=== PATIENT | male | born 1970 | race Hispanic/Latino ===

== ENCOUNTER 2016-07-30 09:02 | Observation (INO) | payer BC ==
[2016-07-30 09:11] VITALS: BMI 24.7
[2016-07-30] MEDS ORDERED: Iohexol 240 (50 ml) PO ONE (10:00)
[2016-07-30] MEDS ORDERED: Iohexol 240 (50 ml) ONE (10:05)
--- NOTE | 2016-07-30 10:07 | ED PDOC ---
HPI: Abdomen Time Seen by Provider: 07/30/16 09:38 Chief Complaint (Nursing): Abdominal Pain History Per: Patient Additional Complaint(s): Patient is a 46 year old male who is c/o abd pain for 6 months. Pt states that for the past 6 months he has been having pressure-like upper abd pain and sometimes LLQ pain. The pain will radiate to his left and right sides. He has also been with constipation for past few months. He states that it feels like something is inside of his abd. Pt with white stool today and dark urine. Pt is not losing weight. (+) Nausea. Pt also c/o feeling weak and lethargic. Pt also c/o poor appetite. No heart burn type of sensation. no fever. No additional complaints at this time. PMD: None Past Medical History Reviewed: Historical Data, Nursing Documentation, Vital Signs Vital Signs: Last Vital Signs Temp 97 F L 07/30/16 09:10 Pulse 56 L 07/30/16 09:10 Resp BP 131/77 07/30/16 09:10 Pulse Ox 99 07/30/16 15:08 - Medical History PMH: No Chronic Diseases Denies: Chronic Kidney Disease - Family History Family History: States: CAD - Social History Current smoker - smoking cessation education provided: No Ex-Smoker (has not smoked in the last 12 months): No Alcohol: None Drugs: Denies - Allergies Allergies/Adverse Reactions: Allergies Allergy/AdvReac Type Severity Reaction Status Date / Time No Known Allergies Allergy Verified 07/30/16 09:33 Review of Systems ROS Statement: Except As Marked, All Systems Reviewed And Found Negative Constitutional: Negative for: Fever Cardiovascular: Negative for: Chest Pain Respiratory: Negative for: Shortness of Breath Gastrointestinal: Positive for: Nausea, Abdominal Pain. Negative for: Vomiting Genitourinary Male: Negative for: Dysuria Physical Exam - Reviewed Nursing Documentation Reviewed: Yes Vital Signs Reviewed: Yes - Physical Exam Appears: Positive for: Well, Non-toxic Head Exam: Positive for: ATRAUMATIC, NORMAL INSPECTION, NORMOCEPHALIC Skin: Positive for: Warm, Dry Eye Exam: Positive for: Normal appearance, EOMI ENT: Positive for: Normal ENT Inspection Neck: Positive for: Normal Cardiovascular/Chest: Positive for: Regular Rate, Rhythm, Chest Non Tender Respiratory: Positive for: Normal Breath Sounds. Negative for: Rales, Rhonchi, Wheezing Gastrointestinal/Abdominal: Positive for: Bowel Sounds, Soft, Tenderness (mild mid upper gastric tenderness and some LLQ). Negative for: Guarding, Rebound Back: Positive for: Normal Inspection Extremity: Positive for: Normal ROM Lymphatic: Positive for: Deferred Neurologic/Psych: Positive for: Alert. Negative for: Motor/Sensory Deficits - Laboratory Results Result Diagrams: 07/30/16 10:26 07/30/16 10:26 - ECG O2 Sat by Pulse Oximetry: 99 Medical Decision Making Medical Decision Making: Intial Impression: Undifferentiated abdominal pain Initial Plan: Will check labs and get CT ED OBSERVATION Date of observation admission: 07/30/16 Time of observation admission: 12:06 - Observation admission statement Patient is being placed in observation because:: Still symptomatic - Goals of Observation Goals of observation are:: Improvement of symptoms - Progress Note Progress Note: 07/30/16 13:15 Pt has returned from CT scan. Awaiting CT reading 07/30/16 14:18 There is a partially visualized 2 cm right middle lobe mass that is seen on the abd CT. Radiology recommends a CT of the chest. I've ordered a CT of the chest. 07/30/16 15:07 My shift has come to an end. I have endorsed the patient to the incoming ED attending Dr. Terrie Reyes. She will follow up the CT of the chest and dispo patient accordingly. Disposition - Clinical Impression Clinical Impression: Abdominal pain - Disposition Disposition: Transfer of Care Disposition Time: 15:00 Condition: FAIR Patient Signed Over To: Terrie Reyes Handoff Comments: F/U CT and dispo accordingly - POA Present On Arrival: None
[2016-07-30] MEDS ORDERED: Sodium Chloride 0.9% 1,000 ML IV SCH (10:15)
[2016-07-30 11:34] LABS: BASO % 0.6 % (0.0-2.0); EOS # 0.1 K/uL (0.0-0.7); EOS % 2.4 % (0.0-4.0); HEMATOCRIT 42.5 % (35.0-51.0); LYMPH # 1.9 K/uL (1.0-4.3); LYMPH % 34.3 % (20.0-40.0); MEAN CELL VOLUME 88.6 fl (80.0-94.0); MEAN CORPUSCULAR HEMOGLOBIN 28.9 pg (27.0-31.0); MEAN CORPUSCULAR HGB CONC 32.6 g/dL (33.0-37.0); MEAN PLATELET VOLUME 8.3 fl (7.2-11.7); MONO # 0.4 K/uL (0.0-0.8); MONO % 7.6 % (0.0-10.0); NEUT # 3.1 K/uL (1.8-7.0); NEUT % 55.1 % (50.0-75.0); NRBC % 0.1 % (0.0-0.0); RED CELL DISTRIBUTION WIDTH 13.6 % (11.5-14.5); WHITE BLOOD COUNT 5.6 K/uL (4.8-10.8)
[2016-07-30 11:42] LABS: ALB/GLOB RATIO 1.5 (1.0-2.1); ALKALINE PHOSPHATASE 69 U/L (38-126); ALT/SGPT 39 U/L (21-72); AMYLASE 90 U/L (30-110); AST/SGOT 35 U/L (17-59); BILIRUBIN,TOTAL 0.2 mg/dl (0.2-1.3); BLOOD UREA NITROGEN 14 mg/dl (9-20); CALCIUM 9.1 mg/dL (8.4-10.2); CARBON DIOXIDE 26 mmol/L (22-30); CHLORIDE 104 mmol/L (98-107); GFR AFRICAN-AMERICAN > 60; GLUCOSE,RANDOM 98 mg/dL (75-110); LIPASE 241 U/L (23-300); POTASSIUM 4.4 MMOL/L (3.6-5.0); SODIUM 139 mmol/l (132-148); TOTAL PROTEIN 7.5 G/DL (6.3-8.2)
[2016-07-30 12:24] LABS: RBC URINE 1 /hpf (0-3); URINE BILIRUBIN NEGATIVE (NEGATIVE); URINE BLOOD NEGATIVE (NEGATIVE); URINE COLOR YELLOW (YELLOW); URINE GLUCOSE (UA) NEG (Normal); URINE KETONE TRACE mg/dL (NEGATIVE); URINE LEUKOCYTE ESTERASE NEG Leu/uL (Negative); URINE PROTEIN NEGATIVE (NEGATIVE); URINE UROBILINOGEN 0.2-1.0 mg/dL (0.2-1.0); WBC URINE < 1 /hpf (0-5)
[2016-07-30] MEDS ORDERED: Iohexol 300 100 ML IJ ONE (12:42)
[2016-07-30] MEDS ORDERED: Sodium Chloride 0.9% 50 ML IV ONE (12:43)
--- NOTE | 2016-07-30 13:53 | CT ---
PROCEDURE: CT Abdomen and Pelvis with contrast HISTORY: Upper abd pain and white stools COMPARISON: None. TECHNIQUE: Contrast dose: 95 cc. Radiation dose: Total exam DLP = 690.18 mGy-cm. This CT exam was performed using one or more of the following dose reduction techniques: Automated exposure control, adjustment of the mA and/or kV according to patient size, and/or use of iterative reconstruction technique. FINDINGS: LOWER THORAX: Partially visualized 2 centimeter mass in the right middle lobe. Mild bibasilar atelectatic changes noted. The heart is not enlarged. There is no significant pericardial effusion. LIVER: Few sub centimeter hypodensities in the hepatic parenchyma. These are too small to characterize accurately. This likely represents cysts or hemangiomas. GALLBLADDER AND BILE DUCTS: Unremarkable. PANCREAS: Unremarkable. No gross lesion or ductal dilatation. SPLEEN: Unremarkable. ADRENALS: Unremarkable. No mass. KIDNEYS AND URETERS: Unremarkable. No hydronephrosis. No solid mass. VASCULATURE: Unremarkable. No aortic aneurysm. BOWEL: No obstruction. Partial small-bowel suboptimally evaluated due to lack of oral contrast within the lumen. APPENDIX: No evidence of acute appendicitis. PERITONEUM: Unremarkable. No free fluid. No free air. LYMPH NODES: No bulky lymphadenopathy. BLADDER: Unremarkable. REPRODUCTIVE: Unremarkable. BONES: L4-L5 pars defects. OTHER FINDINGS: None. IMPRESSION: Partially visualized 2 centimeter right mid lobe mass. Followup chest CT recommended. No bowel obstruction. No bulky lymphadenopathy. Other findings as above.
--- NOTE | 2016-07-30 15:14 | ED PDOC ---
- Laboratory Results Result Diagrams: 07/30/16 10:26 07/30/16 10:26 - ECG O2 Sat by Pulse Oximetry: 99 (RA) Pulse Ox Interpretation: Normal Medical Decision Making Medical Decision Making: Receiving Sign Out: Pt signed over to me by Dr. Gann pending CT Chest results and final disposition. Scribe Attestation: Documented by Aidee Pham acting as a scribe for Terrie Reyes MD. Provider Attestation: All medical record entries made by the Scribe were at my direction and personally dictated by me. I have reviewed the chart and agree that the record accurately reflects my personal performance of the history, physical exam, medical decision making, and the department course for this patient. I have also personally directed, reviewed, and agree with the discharge instructions and disposition. Disposition - Clinical Impression Clinical Impression: Abdominal pain - POA Present On Arrival: None - Disposition Disposition: Routine/Home Disposition Time: 16:35 Condition: GOOD Progress Note - Review of Symptoms Events since last encounter: Time: 1604 CT Chest IMPRESSION: 2.1 centimeter nodule/mass seen in the right middle lobe without significant surrounding architectural distortion. Correlation with PET-CT and/or histologic analysis recommended. Alternatively, comparison with prior studies, if available should be obtained. Time: 1625 Results discussed with patient and emphasized need for pt to follow up with PCP continuously, regarding nodule noted in imaging studies. Also advised pt to follow up with Gastroenterology for abdominal pain. All questions answered for the pt who expresses understanding of plan and is agreeable. Pt is stable for d/c home.
--- NOTE | 2016-07-30 16:06 | CT ---
PROCEDURE: CT Chest without contrast HISTORY: Partially visualized chest mass seen on abd ct COMPARISON: None. TECHNIQUE: Contiguous axial images were obtained through the chest without intravenous contrast enhancement. Sagittal and coronal reconstructions were performed. Radiation dose (DLP): 551.07 mGy-cm. This CT exam was performed using one or more of the following dose reduction techniques: Automated exposure control, adjustment of the mA and/or kV according to patient size, and/or use of iterative reconstruction technique. FINDINGS: LUNGS: Biapical pleural parenchymal thickening. 2.1 centimeter nodule/mass seen in the right middle lobe without significant surrounding architectural distortion. Branches of the pulmonary vein are seen coursing through the mass. MEDIASTINUM: Unremarkable thoracic aorta. No aneurysm. Normal sized heart. Main pulmonary artery unremarkable. No vascular congestion. No significant mediastinal. Hilar lymphadenopathy suboptimally seen due to lack of IV contrast. PLEURA: No pleural fluid. No pneumothorax. BONES: No fracture. No destructive lesion. UPPER ABDOMEN: Please refer to report from CT abdomen and pelvis done on the same day. OTHER FINDINGS: None. IMPRESSION: 2.1 centimeter nodule/mass seen in the right middle lobe without significant surrounding architectural distortion. Correlation with PET-CT and/or histologic analysis recommended. Alternatively, comparison with prior studies, if available should be obtained.
[2016-07-30 16:44] VITALS: BP 126/76; PULSE 64; RESP 16; TEMP 98.7; O2SAT 97
--- NOTE | 2016-07-31 14:46 | CARD ---
APPROVED REPORT EKG Measurement Heart [id number] <Conclusion> Sinus bradycardia Otherwise normal ECG
== END 2016-07-30 16:35 | disposition home or self-care (01) ==
LOC: H.ER 09:02 → H.EROBSV 12:05
PROVIDERS: ADMIT Emergency Medicine; ATTEND Emergency Medicine
DX: K59.00 Constipation, unspecified (principal); R10.32 Left lower quadrant pain; R10.10 Upper abdominal pain, unspecified; R11.0 Nausea; R53.1 Weakness
CPT/HCPCS: 71250; 74177; 80053; 81003; 82150; 82550; 83690; 85025; 93005; 96374; 99284; G0378; J7040; Q9966; Q9967